=== PATIENT | female | born 1960 | race Caucasian/White ===

== ENCOUNTER → 2023-08-08 11:44 | Outpatient (REF) | payer BC, SELFPAY | LOC: HWRAD 11:44 | PROVIDERS: ATTENDING PHYSICIAN Chiropractor; FAMILY PHYSICIAN Family Medicine | DX: M99.01 Segmental and somatic dysfunction of cervical region (principal); M62.40 Contracture of muscle, unspecified site; M54.12 Radiculopathy, cervical region | CPT/HCPCS: 72052 ==